=== PATIENT | male | born 1945 | race Caucasian/White ===

== ENCOUNTER 2017-02-18 07:49 | Day surgery (SDC) | payer MEDICARE, BC ==
[2017-02-17 12:54] LABS: HEMATOCRIT 46.1 % (40.0-51.0); HEMOGLOBIN 15.6 g/dL (13.6-17.8)
[2017-02-17 13:13] LABS: BUN (BLOOD UREA NITROGEN) 16 MG/DL (6-23); CHLORIDE, SERUM 106 MMOL/L (96-112); CO2 (CARBON DIOXIDE) 28 MMOL/L (24-34); CREATININE 0.99 MG/DL (0.70-1.30); GFR AFRICAN AMERICAN 88 ML/MIN (>=60); GFR NON AFRICAN AMERICAN 76 ML/MIN (>=60); GLUCOSE, SERUM 116 MG/DL (60-99); POTASSIUM, SERUM 4.5 MMOL/L (3.5-5.3); SODIUM, SERUM 139 MMOL/L (135-148)
--- NOTE | ~2017-02-18 | OP ---
Record Of Operation [facility] [address] [place]. [address] NAME: ARMEN MACIEL : 45 STATUS : [place] [facility] [place]#: [id number] AGE: 71 ADM/REG DATE : 02/18/17 MR#: [id number] REPORT SERV DATE: 02/18/17 DICTATED BY: FRANK MERAZ III DATE: 02/18/17 REPORT STATUS : Draft TRANSCRIBED BY: MODL DATE: 02/18/17 DATE OF PROCEDURE: 02/18/2017 PREOPERATIVE DIAGNOSIS: Elevated PSA. POSTOPERATIVE DIAGNOSIS: Elevated PSA plus enlarged prostate. PROCEDURES: 1. Transrectal ultrasound of the prostate gland. 2. Ultrasound guidance. 3. Needle biopsy of the prostate gland. SURGEON: Frank Meraz M.D. ANESTHESIA: MAC. BLOOD LOSS: Minimal. SPECIMEN: Prostate biopsy x14. INDICATION: Mr. Maciel is a 71-year-old, white male with a PSA of greater than 7. It has been progressing over the last several years. He has been counseled. Consent is obtained for prostate biopsy. DESCRIPTION OF PROCEDURE: After consent was obtained, the patient was identified and was taken to the OR and placed in the left lower decubitus position on the stretcher. MAC anesthesia was administered. The ultrasound probe was inserted. A three-dimensional volume was 67 mL. Ultrasound guidance was activated and needle biopsy was performed. There were two cores from the right and left bases; three cores from the right and left mid glands; and two cores from the right and left apex. Bleeding was minimal. Hemorrhoid roll was then placed into the rectum. The patient was taken to phase 2 recovery in stable condition. PH/MODL Frank Meraz III, M.D. / [id number] CC: Ruth Ruvalcaba III, M.D.
[~2017-02-18 07:49] MED LIST: ALKA SELTZER; ALKA SELZER PO; ASAB PO; BUPROBAN150 MG PO; LIPITOR10 PO; PAXIL30 MG PO; PRIN20 PO; TESTOST CYP200 MG/ML IM; VICODIN ES1 TAB PO; WELLSR100 PO; XARELTO10 MG PO; ZOFRAN4 PO
== END 2017-02-18 15:54 | disposition home or self-care (01) ==
LOC: SDC 07:49
PROVIDERS: Urology
PROC: 0V903ZX Drainage of Prostate, Percutaneous Approach, Diagnostic (ICD-10-PCS; principal; 2017-02-18 09:15)
DX: C61 Malignant neoplasm of prostate (principal); I10 Essential (primary) hypertension; I25.10 Atherosclerotic heart disease of native coronary artery without angina pectoris; F32.9 Major depressive disorder, single episode, unspecified; E78.5 Hyperlipidemia, unspecified; E78.00 Pure hypercholesterolemia, unspecified; E66.9 Obesity, unspecified; Z68.32 Body mass index [BMI] 32.0-32.9, adult; Z95.1 Presence of aortocoronary bypass graft; Z79.82 Long term (current) use of aspirin; Z79.899 Other long term (current) drug therapy; Z90.89 Acquired absence of other organs; Z98.890 Other specified postprocedural states; Z96.652 Presence of left artificial knee joint
CPT/HCPCS: 76872; 76942; 80048; 85014; 85018; 88305; J2370; J2550

== ENCOUNTER 2017-04-01 04:57 | Inpatient (IN) | payer MEDICARE, BC ==
[2017-03-27 12:09] LABS: HEMATOCRIT 46.6 % (40.0-51.0); HEMOGLOBIN 15.3 g/dL (13.6-17.8)
[2017-03-27 12:22] LABS: BUN (BLOOD UREA NITROGEN) 13 MG/DL (6-23); CALCIUM, SERUM 9.2 MG/DL (8.5-10.4); CHLORIDE, SERUM 104 MMOL/L (96-112); CO2 (CARBON DIOXIDE) 28 MMOL/L (24-34); CREATININE 1.12 MG/DL (0.70-1.30); GFR AFRICAN AMERICAN 76 ML/MIN (>=60); GFR NON AFRICAN AMERICAN 65 ML/MIN (>=60); GLUCOSE, SERUM 97 MG/DL (60-99); SODIUM, SERUM 139 MMOL/L (135-148)
[2017-03-27 12:23] LABS: POTASSIUM, SERUM 5.9 MMOL/L (3.5-5.3)
[2017-03-27 12:35] LABS: ASCORBIC ACID (UR NOT ORDER) NEG (NEG); BILIRUBIN, URINE NEGATIVE (NEG); KETONE, URINE NEGATIVE (NEG); LEUKOCYTE ESTERASE(NOT OR NEG (NEG); WBC (NOT ORDERED) (RFLEX) < 1 (0-5)
--- NOTE | ~2017-04-01 | OP ---
Record Of Operation [facility] [address] [place]. [address] NAME: ARMEN MACIEL : 45 STATUS : ADM IN [facility]#: [id number] AGE: 72 ADM/REG DATE : 04/01/17 MR#: [id number] REPORT SERV DATE: 04/01/17 DICTATED BY: LUIS M ESCALONA DATE: 04/01/17 REPORT STATUS : Draft TRANSCRIBED BY: MODL DATE: 04/01/17 DATE OF PROCEDURE: 04/01/2017 TITLE OF OPERATION: 1. Robot-assisted laparoscopic radical prostatectomy. 2. Robot-assisted laparoscopic pelvic lymph node dissection. PREOPERATIVE DIAGNOSIS: Intermediate-risk prostate cancer. POSTOPERATIVE DIAGNOSIS: Intermediate risk prostate cancer. INDICATIONS: Mr. Maciel is a 72-year-old male with intermediate risk prostate cancer. He has been counseled regarding his options including surveillance, radiation, and surgery. He has elected for surgery. ANESTHESIA: General. COMPLICATIONS: None. IMPLANTS: 1. 18-Slovak Daly catheter. 2. #10 round JOCY drain. SPECIMENS: 1. Prostate and seminal vesicles. 2. Anterior fat pad. 3. Bilateral pelvic lymph nodes. NARRATIVE: The patient was brought to the operating room, identified by his wristband. General anesthesia was induced, and Ancef was given for preoperative antibiotics. He was placed in the dorsal lithotomy position and prepped and draped in sterile fashion. A 16- Slovak Daly catheter was placed, and the balloon was inflated to 10 mL of sterile water. His abdomen was insufflated to a pressure of 15 mmHg using a Veress needle. A supraumbilical incision was made. A 12 mm step port was placed. The abdomen was inspected. There were no adhesions. Standard Si port placement was performed with two 8 mm ports on the left side of the body and one 8 mm port on the right side of the body. A 12 mm port was placed in the right lower quadrant, and a 5 mm port was placed in the right upper quadrant. The patient was placed in Trendelenburg, and the robot was docked. I began the operation by incising the peritoneum over the seminal vesicles and vas deferens posteriorly. These structures were dissected out bilaterally. The pedicle to the seminal vesicles was clipped and divided. Next, Denonvilliers fascia was incised and reflected posteriorly onto the rectum. This was carried from the base to the apex of the prostate. Next, the bladder was dropped off the anterior abdominal wall using electrocautery. The prostate was then defatted. The fibrofatty tissue overlying the prostate was sent to Pathology as anterior fat pad. Next, the endopelvic fascia was divided bilaterally. The levator fibers were swept off the prostate bilaterally. The puboprostatic ligaments were divided bilaterally. Record Of Operation [facility] [id number] [facility] [place]. [address] NAME: ARMEN MACIEL : 45 STATUS : ADM IN PAT#: [id number] AGE: 72 ADM/REG DATE : 04/01/17 MR#: [id number] REPORT SERV DATE: 04/01/17 DICTATED BY: LUIS M ESCALONA DATE: 04/01/17 REPORT STATUS : Draft TRANSCRIBED BY: GHANSHYAM DATE: 04/01/17 The dorsal vein was precisely identified, and care was taken to not damage any of the levator fibers. The dorsal vein was then stapled with a 45 mm endovascular stapler. Some residual dorsal vein tissue was divided with cautery. A 3-0 V-Loc suture was used to oversew some dorsal venous bleeding and also suspend the urethra to the pubic bone. Next, the fibrofatty tissue overlying the bladder neck was divided with bipolar cautery and scissors. A bladder neck preserving operation was then performed. The anterior bladder neck was entered. The catheter was delivered into the field. The posterior bladder neck was then transected. A small bladder neck was obtained. The posterior bladder neck was then sharply divided off the prostate to expose the previously dissected seminal vesicles and vas deferens. These were delivered into the field. The pedicles to the prostate were clipped and divided bilaterally. On the right side, a nerve-sparing operation was performed from the base to the apex. The neurovascular bundle was swept off the prostate in a retrograde and antegrade fashion. On the left side, there was high-grade disease, and the neurovascular bundle was left on the prostate for additional coverage. The patient had pre- existing erectile dysfunction prior to surgery. Next, the urethra was precisely divided. The posterior striated sphincter was divided. The prostate was then free from all attachments and placed into an EndoCatch bag. Pinpoint arterial bleeding was controlled with metal clips. Attention was then turned to the pelvic lymph nodes on the right side. All fibrofatty tissue beneath the external iliac vein within the obturator fossa and overlying the internal iliac vessels was taken. Care was taken to clip lymphatics and vessels proximally and distally. Similarly on the left side, all fibrofatty tissue underlying the left iliac vein within the obturator fossa and overlying the internal iliac vessels was taken. Care was taken to clip lymphatics and vessels proximally and distally. These lymph nodes were placed into an EndoCatch bag and will be labeled as bilateral pelvic lymph nodes. Next, the posterior striated sphincter was reconstructed in a manner described by Fausto using a running 3-0 V-Loc suture. A running vesicourethral anastomosis was then performed with two interlocked 3-0 V-Loc sutures. An 18-Slovak Daly catheter was placed, and the balloon was inflated with 15 mL of sterile water. The bladder was irrigated, connection was water tight, there was no ongoing bleeding. The robot was undocked. The diver assistant port was closed with a 0 Vicryl suture using a Wayne-George device. A #10 round JOCY drain was placed through the left most lateral robotic port, and it was sutured in place with a 2-0 Prolene suture. The skin and fascia were enlarged with the supraumbilical incision. The prostate was removed and sent to Pathology for analysis. The lymph nodes were similarly sent to Pathology for analysis. The fascia was closed with a 0 Monocryl suture in a [id number] fashion. The wounds were irrigated clear. The subcutaneous tissues were closed with a 3-0 Vicryl suture in an interrupted fashion. The skin was closed with 4-0 Monocryl suture in a subcuticular fashion. Dermabond dressing was placed. A TAP block was placed preoperatively. The patient was awoken from anesthesia and transferred to the recovery room in stable condition. His urine was clear upon leaving the operating room. KEMAL/GHANSHYAM Luis M Ecsalona MD Record Of Operation [address] [place]. [address] NAME: BRIELLEARMEN SIMONA : 45 STATUS : ADM IN PAT#: [id number] AGE: 72 ADM/REG DATE : 04/01/17 MR#: [id number] REPORT SERV DATE: 04/01/17 DICTATED BY: LUIS M ESCALONA DATE: 04/01/17 REPORT STATUS : Draft TRANSCRIBED BY: GHANSHYAM DATE: 04/01/17 / [id number] CC: Luis M Escalona MD
[2017-04-01 12:11] LABS: BASOPHILS 0.2 %; BASOPHILS ABSOLUTE 0.02 10/3/uL (0.0-0.16); EOSINOPHILS 0 %; HEMATOCRIT 44.4 % (40.0-51.0); HEMOGLOBIN 14.7 g/dL (13.6-17.8); IMMATURE GRANULOCYTES 0.3 %; IMMATURE GRANULOCYTES ABSOLUTE 0.04 10/3/uL (0.0-0.11); LYMPHOCYTES 6.2 %; LYMPHOCYTES ABSOLUTE 0.72 10/3/uL (0.67-4.30); MEAN CORPUS HGB CONC 33.1 g/dL (32.0-36.0); MEAN CORPUSCULAR HEMOGLOB 31.1 pg (26.0-34.0); MEAN CORPUSCULAR VOLUME 94.1 fL (80-100); MEAN PLATELET VOLUME 10.3 fL (9.2-13.0); MONOCYTES 1.3 %; MONOCYTES ABSOLUTE 0.15 10/3/uL (0.21-1.20); NEUTROPHILS ABSOLUTE 10.66 10/3/uL (2.02-8.40); PLATELET COUNT 241 10/3/uL (150-400); RBC DISTRIBUTION WIDTH 13.5 % (12.0-16.0); RED CELL COUNT 4.72 10/6/uL (4.7-6.1)
[2017-04-01 12:13] LABS: MANUAL DIFF NO %; WHITE BLOOD CELLS 11.6 10/3/uL (4.5-10.5)
[2017-04-01 12:23] LABS: BUN (BLOOD UREA NITROGEN) 15 MG/DL (6-23); CALCIUM, SERUM 8.6 MG/DL (8.5-10.4); CHLORIDE, SERUM 107 MMOL/L (96-112); CO2 (CARBON DIOXIDE) 23 MMOL/L (24-34); CREATININE 0.99 MG/DL (0.70-1.30); GFR AFRICAN AMERICAN 88 ML/MIN (>=60); GFR NON AFRICAN AMERICAN 76 ML/MIN (>=60); GLUCOSE, SERUM 129 MG/DL (60-99); POTASSIUM, SERUM 4.1 MMOL/L (3.5-5.3); SODIUM, SERUM 138 MMOL/L (135-148)
[2017-04-02] MEDS ORDERED: CIP5 PO (11:07)
[2017-04-02] MEDS ORDERED: PCET PO (11:08)
[2017-04-02] MEDS ORDERED: DSS PO (11:08)
== END 2017-04-02 17:08 | disposition home or self-care (01) | DRG 708 ==
LOC: SDC/OF 04:57 → PACU 11:07 → 4SO 11:43
PROVIDERS: Urology
PROC: 07BC4ZZ Excision of Pelvis Lymphatic, Percutaneous Endoscopic Approach (ICD-10-PCS; 2017-04-01)
PROC: 8E0W4CZ Robotic Assisted Procedure of Trunk Region, Percutaneous Endoscopic Approach (ICD-10-PCS; 2017-04-01)
PROC: 0VT04ZZ Resection of Prostate, Percutaneous Endoscopic Approach (ICD-10-PCS; principal; 2017-04-01 06:00)
DX: C61 Malignant neoplasm of prostate (principal)
CPT/HCPCS: 36415; 80048; 81001; 82570; 84132; 85014; 85018; 85025; 86850; 86900; 86901; 88305; 88307; 88309; 93005; A9270-GY; J0461; J0690; J1170; J1885; J2250; J2405; J2710; J2795; J3010